=== PATIENT | female | born 1985 | race Hispanic/Latino ===

== ENCOUNTER → 2018-11-13 | Outpatient (CLI) | payer OTHER ==
[~2018-11-13] MED LIST: IOPAMIDOL 370 MG/ML 200 ML INFUS..BTL INJ ONE; SODIUM CHLORIDE 0.9% 50ML 50 ML ONE
[2018-11-13 16:43] LABS: BLOOD UREA NITROGEN 10 mg/dL (7-26); BUN/CREATININE RATIO 14 (6-25); CREATININE, SERUM 0.71 mg/dL (0.57-1.11); EST GLOMERULAR FILTRATION RATE > 60 ML/MIN (60-)
--- NOTE | 2018-11-13 17:59 | Diagnostic Imaging Report ---
EXAM: CT ABDOMEN/PELVIS W DATE: 11/13/2018 5:00 PM INDICATION: Elevated liver enzymes COMPARISON: None TECHNIQUE: The abdomen and pelvis were scanned using a multidetector helical scanner. Coronal and sagittal reformations were obtained. CT low dose techniques were utilized, as applicable. IV Contrast: 100 ml Isovue 300/370 FINDINGS: LOWER THORAX: No consolidations LIVER/BILIARY: Hepatic steatosis. No masses. No ductal dilatation. GALLBLADDER: Unremarkable SPLEEN: Unremarkable PANCREAS: Unremarkable ADRENALS: No nodules KIDNEYS: No suspicious renal masses. No hydronephrosis. GI TRACT: No wall thickening or evidence of obstruction. Normal appendix. VESSELS: Unremarkable PERITONEUM/RETROPERITONEUM: No free air or fluid LYMPH NODES: No lymphadenopathy REPRODUCTIVE ORGANS/BLADDER: Dominant left ovarian cyst/follicle with possible hydrosalpinx. SOFT TISSUES: Nonspecific subcutaneous inflammatory changes within the anterior abdomen. BONES: No suspicious bone lesions. IMPRESSION: 1. No acute abnormality in the abdomen or pelvis. 2. Hepatic steatosis. 3. Possible small left hydrosalpinx. Signed by: Dr Heather Ramirez MD on 11/13/2018 5:56 PM
== END ==
LOC: CT 15:46
PROVIDERS: ATTEND Internal Medicine Gastroenterology
DX: R74.8 Abnormal levels of other serum enzymes (principal); K76.0 Fatty (change of) liver, not elsewhere classified
CPT/HCPCS: 36415; 74177; 81025; 82565; 84520; Q9967

== ENCOUNTER → 2019-03-05 | Outpatient (CLI) | payer OTHER ==
[~2019-03-05] MED LIST changes: +FENTANYL CITRATE/PF 100MCG/2 ML INJ ONE; +GELATIN SPONGE 12-7MM ONE; -IOPAMIDOL 370 MG/ML 200 ML INFUS..BTL INJ ONE; +MIDAZOLAM HCL 2 MG/2 ML VIAL ONE; -SODIUM CHLORIDE 0.9% 50ML 50 ML ONE
[2019-03-05 08:55] LABS: INR 0.95; PARTIAL THROMBOPLASTIN TIME 29.9 seconds (23.8-35.5); PROTHROMBIN TIME 13.2 seconds (11.9-14.5)
--- NOTE | 2019-03-05 10:32 | Diagnostic Imaging Report ---
EXAM: US GALLBLADDER DATE: 03/05/2019 8:57 AM Time stamp on exam: INDICATION: Elevated liver function test COMPARISON: CT abdomen and pelvis with contrast 11/13/2018 TECHNIQUE: Transverse and longitudinal marquez scale and color doppler sonographic images of the upper abdomen were obtained. FINDINGS: LIVER 12.7 cm in the right midclavicular line. Normal echogenicity, normal contour, no masses. GALLBLADDER Shadowing calculus in the neck of the gallbladder, without wall thickening or pericholecystic fluid. Negative sonographic Munguia's sign. BILE DUCTS No intra nor extra-hepatic biliary dilation. Common bile duct measures 0.3 cm PANCREAS: Visualized portions are normal. RIGHT KIDNEY: 9.9 cm Echogenicity: Normal Collecting System: No hydronephrosis Stones: None Cyst/Mass: None VESSELS: Aorta: Nonaneurysmal Inferior Vena Cava: Patent Main Portal Vein: 0.9 cm, normal size with hepatopetal flow. FREE FLUID: None IMPRESSION: Cholelithiasis without sonographic evidence of acute cholecystitis. Signed by: Dr. Karan Sims M.D. on 03/05/2019 10:29 AM
--- NOTE | 2019-03-05 10:51 | Diagnostic Imaging Report ---
Date and Time: 03/05/2019 Procedure: Ultrasound-guided liver biopsy floater operator: Dr. Sims Pre-operative diagnosis: Elevated liver enzymes Post-operative diagnosis: Elevated liver enzymes Conscious Sedation: Versed 1 mg and Fentanyl 50 mcg. The patient's heart rate and pulse oximetry were continuously monitored by the interventional radiology nurse. Blood pressure was monitored at 5 minute intervals. Total monitored sedation time: 20 minutes Additional Medications: Lidocaine 1% for local anesthesia Estimated blood loss: Less than 10 cc Blood products administered: None Complications: No immediate Specimens: Core biopsy specimens x3 Implants: None Condition at completion: Stable Disposition: Radiology holding area DISCUSSION: Informed consent was obtained and documented in the medical record after discussion of risks and benefits. The patient was placed in the right anterior oblique position on the sonographic table. The right upper quadrant of the abdomen was prepped and draped in the standard sterile fashion. A suitable percutaneous approach to the right hepatic lobe was identified and 1% lidocaine was infiltrated into the skin and subcutaneous tissues for local anesthesia. Then under continuous sonographic guidance a 16-gauge needle guide was advanced into the right hepatic lobe. Subsequently, 3 core biopsy specimens were obtained coaxially using an 18-gauge, 2 cm throw core biopsy apparatus. Specimens were submitted in formalin for histologic analysis. Change Management Analyst sonographic images were stored. At the conclusion of sampling a small amount of Gelfoam slurry was injected at the liver capsule and subcutaneous tract through the needle guide as it was removed. Manual compression was held at the access site x 5 minutes. Final sonographic image showed no evidence of perihepatic hematoma. A sterile dressing was applied. The patient tolerated the procedure well without immediate complication. IMPRESSION: Successful ultrasound-guided core biopsies of the right lobe of the liver. Signed by: Dr. Karan Sims M.D. on 03/05/2019 10:48 AM
== END ==
LOC: US 07:51
PROVIDERS: ATTEND Internal Medicine Gastroenterology
DX: R74.8 Abnormal levels of other serum enzymes (principal)
CPT/HCPCS: 36415; 47000; 76705; 76942; 85049; 85610; 85730; 88307; J2250

== ENCOUNTER → 2019-03-17 | Outpatient (CLI) | payer OTHER ==
--- NOTE | 2019-03-17 14:48 | Diagnostic Imaging Report ---
EXAM: Magnetic Resonance Cholangiopancreatography (M.R.C.P.) INDICATION: ^ELEVATED LIVER ENZYMES COMPARISON: Gallbladder ultrasound 03/05/2019. Liver biopsy 03/05/2019. CT abdomen and pelvis 11/13/2018. TECHNIQUE: Multiplanar, multisequence MRCP was performed, with sequences including coronal turbo spin-echo T1-weighted scans, [facility] MRCP scans, coronal spin, coronal MPR 2, SMRCP 3D HR, [facility] MRCP HECTOR. Thin and thick slab MRCP sequences with rotational images were performed by the technologist at the scanner workstation and supervised by the radiologist. IV Contrast: None Oral Contrast: None Medications: None COMPLICATIONS: None FINDINGS: LOWER THORAX: Unremarkable. HEPATOBILIARY: Loss of signal on out of phase imaging consistent with diffuse hepatic steatosis. No focal hepatic lesions. Common bile duct measures 0.66 cm, which is greater than expected for age. There is slightly abrupt narrowing of the distal common bile duct before the ampulla Vater. GALLBLADDER: Single gallstone. No wall thickening. SPLEEN: No splenomegaly. PANCREAS: No focal masses or ductal dilatation. ADRENALS: No adrenal nodules KIDNEYS/URETERS: No hydronephrosis. No cystic or solid mass lesions. No stones. GI TRACT: No abnormal distention, wall thickening, or evidence of bowel obstruction. Appendix is normal. LYMPH NODES: No lymphadenopathy. VESSELS: Unremarkable. PERITONEUM / RETROPERITONEUM: No free air or fluid. BONES: Unremarkable. SOFT TISSUES: Unremarkable. IMPRESSION: 1. Cholelithiasis without evidence of acute cholecystitis. 2. Diffuse hepatic steatosis. 3. Mild common bile duct dilatation for age based on MRCP sequences. There is mild abrupt narrowing in the distal common bile duct. This is concerning for possible stricture either benign or malignant. Recommend ERCP. Signed by: Dr. Terrence Swain M.D. on 03/17/2019 2:45 PM
== END ==
LOC: MRI 07:19
PROVIDERS: ATTEND Internal Medicine Gastroenterology
DX: R74.8 Abnormal levels of other serum enzymes (principal)
CPT/HCPCS: 74181

== ENCOUNTER → 2020-05-04 | Outpatient (CLI) | payer OTHER ==
--- NOTE | 2020-05-04 12:55 | Diagnostic Imaging Report ---
Abdominal Ultrasound Clinical Diagnosis: Fatty liver. Elevated LFTs. Comparison: Ultrasound abdomen 10/06/2019 Technique: Multiple transaxial and longitudinal images were obtained through the abdomen with real time ultrasonography. A low-frequency curvilinear transducer was utilized. Multiple images were submitted for interpretation. Report: Liver: The liver measures 12.6 cm in the right midaxillary line. There are no focal masses or abnormal cysts. The echogenicity is with broad limits of normal compared to the adjacent right renal cortex. Spleen: The spleen measures 12 cm in the left mid axillary line. There are no focal masses or cysts. Gallbladder: Post cholecystectomy. Biliary tree: There is no evidence of intra or extra hepatic biliary ductal dilatation. The common bile duct measures 4 mm. Portal vein: The portal vein measures 10 mm. There is hepatopedal flow. Pancreas: The pancreas shows normal echotexture and no focal masses or cysts. There is no pancreatic duct dilatation. Ascites: Absent Pleural Effusion: Absent Right kidney: The right kidney measures 11.4 x 5.5 x 5.6 cm. There is no evidence of hydronephrosis, mass, cyst. Left kidney: The left kidney measures 12 x 6.7 x 5.1 cm. There is no evidence of hydronephrosis, mass, cyst. IVC/Aorta: Partially seen segments demonstrate no abnormality. Impression: No significant abnormality on this exam. Signed by: Cortes Reich MD on 05/04/2020 12:52 PM
== END ==
LOC: US 11:13
PROVIDERS: ATTEND Internal Medicine
DX: K76.0 Fatty (change of) liver, not elsewhere classified (principal); R74.8 Abnormal levels of other serum enzymes; Z13.29 Encounter for screening for other suspected endocrine disorder; Z13.228 Encounter for screening for other metabolic disorders; Z13.0 Encounter for screening for diseases of the blood and blood-forming organs and certain disorders involving the immune mechanism
CPT/HCPCS: 76700

== ENCOUNTER → 2023-01-12 | Outpatient (CLI) | payer OTHER | LOC: US 09:46 | PROVIDERS: ATTEND Internal Medicine Gastroenterology | DX: K76.0 Fatty (change of) liver, not elsewhere classified (principal); K75.4 Autoimmune hepatitis | CPT/HCPCS: 76700 ==